=== PATIENT | female | born 1985 | race Caucasian/White ===

== ENCOUNTER → 2019-07-08 08:54 | Outpatient (CLI) | payer OTHER, SELFPAY ==
[2019-07-08 11:11] LABS: Anion Gap 6 (5-15); BUN 18 mg/dL (7-18); Calcium,Total 8.9 mg/dL (8.5-10.1); Chloride 111 mmol/L (98-107); Cholesterol 194 mg/dL (200); Creatinine, Serum 0.75 mg/dL (0.55-1.02); EST Glomerular Filtration Rate 95 mL/min (>60); Est Glom Filt Rate - Afr Amer 115 mL/min (>60); Glucose 102 mg/dL (74-106); High Density Lipoprotein 52 mg/dL; Potassium 4.2 mmol/L (3.5-5.1); Sodium Level 141 mmol/L (136-145); Triglycerides 93 mg/dL; Very Low Density Lipoprotein 19 mg/dL (5-40)
== END ==
LOC: LAB 08:56
PROVIDERS: PCP Family Medicine; Referring Provider Family Medicine; Visit Provider Family Medicine
DX: Z13.1 Encounter for screening for diabetes mellitus (principal); Z13.220 Encounter for screening for lipoid disorders
CPT/HCPCS: 36415; 80048; 80061

== ENCOUNTER → 2019-07-20 | Outpatient (CLI) | payer OTHER, SELFPAY ==
[2019-07-20 08:49] VITALS: BMI 34.8
[2019-07-26 14:08] LABS: HPV Genotype 16, Aptima Negative (Negative)
[2019-07-26 16:50] LABS: HPV APTIMA, High Risk Positive (Negative); HPV Genotype 18,45 Aptima Negative (Negative)
== END | disposition home or self-care (01) ==
LOC: LABSPEC 17:01
PROVIDERS: PCP Family Medicine; Referring Provider Nurse Practitioner Women's Health; Visit Provider Nurse Practitioner Women's Health
DX: Z12.4 Encounter for screening for malignant neoplasm of cervix (principal)
CPT/HCPCS: 87624; 88175; G0145

== ENCOUNTER → 2020-09-16 | Outpatient (CLI) | payer OTHER, SELFPAY ==
[2020-09-16 08:45] VITALS: BMI 34.0
[2020-09-18 13:32] LABS: HPV APTIMA, High Risk Negative (Negative)
== END | disposition home or self-care (01) ==
LOC: LABSPEC 12:33
PROVIDERS: PCP Family Medicine; Visit Provider Nurse Practitioner Women's Health
DX: Z12.4 Encounter for screening for malignant neoplasm of cervix (principal)
CPT/HCPCS: 87624; 88175; G0145

== ENCOUNTER → 2021-10-13 | Outpatient (CLI) | payer OTHER, SELFPAY ==
[2021-10-16 14:34] LABS: HPV APTIMA, High Risk Negative (Negative)
== END | disposition home or self-care (01) ==
LOC: LABSPEC 10-14 10:31
PROVIDERS: PCP Family Medicine; Visit Provider Nurse Practitioner Women's Health
DX: Z12.4 Encounter for screening for malignant neoplasm of cervix (principal)
CPT/HCPCS: 87624; 88175; G0145

== ENCOUNTER → 2022-10-19 | Outpatient (CLI) | payer OTHER, SELFPAY ==
[2022-10-24 15:08] LABS: HPV APTIMA, High Risk Negative (Negative)
== END | disposition home or self-care (01) ==
PROVIDERS: PCP Family Medicine; Referring Provider Nurse Practitioner Women's Health; Visit Provider Nurse Practitioner Women's Health
DX: Z12.4 Encounter for screening for malignant neoplasm of cervix (principal)
CPT/HCPCS: 87624; 88175; G0145

== ENCOUNTER → 2022-10-29 | Outpatient (CLI) | payer OTHER, SELFPAY ==
--- NOTE | 2022-10-29 07:26 | BI_ITS ---
MAMMOGRAPHY - BILATERAL SCREENING REASON FOR EXAM: Female, 37 years old. Routine annual screening examination. PERTINENT HISTORY: Grandmother with breast cancer. TECHNIQUE: Digital bilateral breast elisa (3D mammographic acquisition) in the CC and MLO projections. 2-D mediolateral oblique (MLO) and craniocaudad (CC) views of both breasts were obtained. CAD: Full Field Digital Mammography with Computer Added Detection was performed. COMPARISON: None. Baseline examination. FINDINGS: Breast Composition: There are scattered areas of fibroglandular density. There are no dominant masses or suspicious calcifications. No other significant abnormalities are identified. BI/SCRN MAMM (CAD)W/ELISA BILAT IMPRESSION: Negative screening mammogram. Yearly followup mammogram recommended. (A) ASSESSMENT CATEGORY: BIRADS Category 1: Negative. A letter regarding these results will be sent to the patient by the facility within 30 days. Approximately 10% of breast cancers are not detected by mammography. A normal mammogram should not delay biopsy of a clinically suspicious abnormality. [id number] Electronically Signed: Kendall Denton MD at 8:33 EDT ,
== END | disposition home or self-care (01) ==
LOC: OPBI 07:24
PROVIDERS: Referring Provider Nurse Practitioner Women's Health; Visit Provider Nurse Practitioner Women's Health
DX: Z12.31 Encounter for screening mammogram for malignant neoplasm of breast (principal)
CPT/HCPCS: 77063; 77067

== ENCOUNTER 2023-01-05 07:46 | Day surgery (SDC) | payer OTHER, SELFPAY ==
[2022-12-30 08:01] LABS: Hematocrit 44.8 % (37-47); Mean Corp Hgb Conc 33.5 g/dL (32-36); Mean Corpuscular Hgb 32.6 pg (27.0-32.0); Mean Corpuscular Volume 97.4 fL (81-99); Mean Platelet Vol. 8.8 fl (6.2-12.0); Platelet Count 309 K/mm3 (150-450); RBC Distribution Width CV 12.3 % (11.6-14.6); RBC Distribution Width SD 44.2 fl (35.1-43.9); White Blood Count 8.3 K/mm3 (4.4-11.0)
[2022-12-30 08:27] LABS: Anion Gap 6 (5-15); BUN 13 mg/dL (7-18); BUN/Creat Ratio 18.5 RATIO (10-20); Calcium,Total 8.8 mg/dL (8.5-10.1); Chloride 108 mmol/L (98-107); EST Glomerular Filtration Rate 100 mL/min (>60); Est Glom Filt Rate - Afr Amer 121 mL/min (>60); Glucose 93 mg/dL (74-106); Potassium 4.4 mmol/L (3.5-5.1); Sodium Level 138 mmol/L (136-145)
--- NOTE | 2023-01-05 | FALS_PTH ---
PATIENT: BLAINE VIEIRA LOC: [facility] [place] U#:[id number] AGE/SX: 37/F ROOM: RE01/05/[address]: Dr. Nicolette Comer DO : 1985 BED: DIS: 01/05/2023 SPEC #: [id number] RECD: 01/05/23 13:34 STATUS: VIPIN TREVER #: [id number] SURESH: 01/05/23 00:[address]: Nicolette Comer DEPT: SURGICAL PATHOLOGY RECD BY: Martin Ordonez ENTERED: 01/05/23 13:34 SP TYPE: FALL TUBES OTHR DR: Dr. Carlee Santo MD Tissues: Fallopian tube Procedures: Surgery Specimen Level IV HEADER OPERATION: Laparoscopic salpingectomy PRE-OP DIAGNOSIS: Sterilization TISSUE SUBMITTED: Bilateral fallopian tubes MICROSCOPIC DIAGNOSIS Right and left fallopian tubes, bilateral salpingectomies: Benign paratubal cysts of both fallopian tubes. Complete cross-sections of fallopian tubes. AM:michele 01/06/2023 MICROSCOPIC DESCRIPTION Slides are reviewed. GROSS DESCRIPTION Received in fixative is one container labeled with the patient's name and designated bilateral fallopian tubes. The specimen consists of bilateral fallopian tubes. One fallopian tube measures 7.0 cm in length and 0.7 cm in diameter. The second fallopian tube is received in two pieces and measures 7.0 cm in length and 1.0 cm in diameter. A detached piece of fallopian tube with fimbrial end was also noted measuring 1.0 x 0.3 x 0.1 cm. The intact fallopian tube shows a small paratubal cyst measuring 0.3 cm in greatest dimension. The second fallopian tube received in two pieces shows a paratubal cyst which is collapsed and measures 1.0 cm in greatest dimension. The fallopian tubes are not identified as right or left. Sections reveal unremarkable cut surfaces. Security Incident Response Specialist sections are submitted in two cassettes as follows: 1 - intact fallopian tube and smaller paratubal cyst, 2 - fallopian tube received in two pieces and larger paratubal cyst. / SJ:michele 01/05/2023 TC:5 CPT: 60033 x2
--- NOTE | 2023-01-05 07:55 | HP.PCM_ITS ---
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 Is patient in pain?: No Allergies No Known Allergies Allergy (Verified 12/09/22 14:19) Medications aspirin 81 mg tablet,delayed release (Adult Low Dose Aspirin) 81 mg PO DAILY 12/06/19 [History Confirmed 12/09/22] omeprazole 20 mg capsule,delayed release 20 mg PO DAILY 12/06/19 [History Confirmed 12/09/22] cholecalciferol (vitamin D3) 125 mcg (5,000 unit) capsule 125 mcg PO DAILY 10/13/21 [History Confirmed 12/09/22] rosuvastatin 5 mg tablet 5 mg PO DAILY 10/19/22 [History Confirmed 12/09/22] Post menopausal: No Patient : No : No PFSH Medical History GERD (gastroesophageal reflux disease) Nicotine dependence Obesity PFO (patent foramen ovale) Surgical History benign cyst removal from upper chest No history of previous surgery Family History Grandmother Breast cancerGrandfather Cancer lungFather Heart disease atrial fibOther CAD (coronary artery disease) Social History adopted: No household members: none housing: house number of children: 0 current occupational status: employed current occupation: [place] in [employer] pets and animals: Yes sexually active: No Smoking Status: Light Smoker (<10/day) second hand exposure: No alcohol intake: current alcohol intake frequency: a few times a week substance use type: does not use seatbelt use: always do you feel safe at home: Yes additional social history: Single HPI preop, sign paperwork Details: BLAINE VIEIRA is a 37 year old who presents for pre-op laparoscopic bilateral salpingectomy. She plans to bring her mom with her to surgery. History 0 Elective abortions Hx Para Spontaneous abortions Hx # Term Pregnancies Ectopic pregnancies Hx # Pregnancies Multiple births # of living children ROS Const ROS Unobtainable: All systems reviewed & are unremarkable except as noted in H Resp Resp: Reports system reviewed and no additional complaints, except as documented; Denies cough GI GI: Reports as per HPI Psych Psych: Reports system reviewed and no additional complaints, except as documented Exam Const General: cooperative, healthy appearing, comfortable and no acute distress Resp Effort & Inspection: normal respiratory effort Skin General: no rashes or lesions noted Psych Appearance: grossly normal Speech and Movement: speech and movement normal Coding Level of Care Code Off vis,est,level 3 Diagnoses Contraceptive management Z30.9 Assessment and Plan Assessment and Plan (1) Contraceptive management: Status: Acute Plan: After discussing the patient's diagnosis and treatment plan options, patient wishes to proceed with surgical management. I have discussed with the patient the risks, benefits, and alternatives of the procedure which include but are not limited to risks of anesthesia, bleeding, infection, possible damage to bowel, bladder, or surrounding vasculature which could lead to additional surgery to evaluate any complications. Patient agrees to procedure and wishes to proceed. ACOG/uptodate references given for additional information regarding procedure. plan for laparoscopic bilateral salpingectomy.
[2023-01-05 08:11] LABS: Internal QC Validated? YES +Cl - CLEAR BKGD; Pregnancy, Urine Negative Negative
[2023-01-05 08:14] VITALS: BP 137/85; PULSE 87; RESP 17; TEMP 36.2; O2SAT 96; BMI 34.7
[2023-01-05] MEDS: Lactated Ringers 1,000 ML 15 ML IV ×2 (08:18→10:00)
--- NOTE | 2023-01-05 09:01 | DCINST_ITS ---
Discharge Instructions Diet Discharge Diet: No restrictions Activity Discharge Activity: Return to Normal Activity, May Not Drive (for two weeks or while taking narcotic pain medications.), May Shower and May Take a Tub Bath (in 7 days) May resume sexual activity in: 1 week Weight Bearing Status: Full weight bearing Dressing / Incision Call your doctor if you observe: Using more than 1 pad per hour, Shortness of breath, Chest pain and Uncontrolled pain Suture Line Care: Avoid Pulling/Pushing and Avoid Pinching/Bending Remove Dressing in: 1 week (if present) Cleanse incision/area with: Soap & Water and Keep Dressing Clean & Dry Follow Up Care Please Follow Up With: Nicolette Comer DO When: Call to make an appointment with your doctor for a follow up incision check in 1-2 weeks. Test Results: Test results from this visit will be discussed in further detail at your follow- up appointment, if applicable. Discharge Plan Admission Primary Reason for Your Visit: laparoscopic bilateral salpingectomy Attending Provider: Nicolette Comer Primary Care Provider: Carlee Santo Discharge Orders/Prescriptions Prescriptions: New ibuprofen 800 mg tablet 800 mg PO Q8H PRN (Reason: pain) Qty: 30 0RF Continued omeprazole 20 mg capsule,delayed release(DR/EC) 20 mg PO DAILY aspirin [Adult Low Dose Aspirin] 81 mg tablet,delayed release (DR/EC) 81 mg PO DAILY cholecalciferol (vitamin D3) 125 mcg (5,000 unit) capsule 125 mcg PO DAILY rosuvastatin 5 mg tablet 5 mg PO DAILY Referrals / Follow Up: Care Physician,No Primary [Non-Staff] - Disposition Disposition (needs filled in before D/C Order can be placed): Home, Self Care
--- NOTE | 2023-01-05 09:02 | PCM.OPRPT ---
Problems Associated Problem List Diagnoses (1) Contraceptive management: Report of Operation Date of Procedure: 01/05/23 Pre-Operative Diagnosis: desires permanent sterilization Post-Operative Diagnosis: desires permanent sterilization Surgery/Procedure Performed:: laparoscopic bilateral salpingectomy Surgeon: Nicolette Comer Type of Anesthesia: General Estimated Blood Loss (mL): 3cc Description of Procedure: Patient was taken in the operating room and was placed under general anesthesia was prepped and draped in normal sterile fashion in the dorsal lithotomy position. Bladder was drained of clear urine and SCDs were on preoperatively. Uterus was sounded and a uterine manipulator was placed after dilating. Attention was then paid to the abdominal portion of the procedure and the umbilicus was elevated and injected with Marcaine and after a 5 mm incision was made and a 5 mm trocar was inserted into the abdomen under direct visualization using the laparoscope. Abdomen was insufflated with CO2 gas and a 5 mm optical trocar was placed under direct visualization. A left lower quadrant 5 mm port and a mini grasper suprapubically were placed under direct visualization. Uterus was well visualized and bilateral fallopian tubes identified and bilateral tubes were elevated and transecting across the mesosalpinx and the attachment to the uterine corpus bilaterally the tubes were removed without complication. Excellent hemostasis was noted. Fallopian tubes were removed through the lower port sites without complication. Liver and upper abdomen were visualized notably within normal limits and no other gross abnormalities were seen in the abdomen. All instruments removed from the abdomen after gas was desufflated. Port sites were closed with 3-0 Monocryl and surgical glue applied. All instruments removed from the vagina and patient was awoken and taken recovery in stable condition. Admit VTE Documentation VTE Present on Admission: No VTE Mechan Device Prophylaxis: SCD's VTE Pharm Prophylaxis ordered?: No Multi Select Codes Urinary/Genital Urinary/Genital CPT Codes: 47940 Laproscopic BS/O
[2023-01-05] MEDS: Bupivacaine 0.25% 30 ML Vial (09:48)
[2023-01-05 10:18] VITALS: BP 108/88; BP 137/85; PULSE 79; RESP 16; TEMP 36.6; O2SAT 96
[2023-01-05 10:30] VITALS: BP 117/75; BP 137/85; PULSE 70; RESP 16; O2SAT 99
[2023-01-05 10:45] VITALS: BP 104/66; BP 137/85; PULSE 63; RESP 16; O2SAT 97
[2023-01-05 10:51] VITALS: BP 104/66; BP 137/85; PULSE 63; RESP 16; TEMP 37; O2SAT 97
[2023-01-05 11:59] VITALS: BP 107/64; BP 137/85; PULSE 74; RESP 16; TEMP 36.6; O2SAT 94
== END 2023-01-05 12:02 | disposition home or self-care (01) ==
LOC: SDC 07:47 → AC 01-06 11:13
PROVIDERS: Anesthesiology; PCP Internal Medicine; Referring Provider Obstetrics & Gynecology; Visit Provider Obstetrics & Gynecology
PROC: (CPT 58661; principal; 2023-01-05 09:20)
DX: Z30.2 Encounter for sterilization (principal); N83.8 Other noninflammatory disorders of ovary, fallopian tube and broad ligament; F17.200 Nicotine dependence, unspecified, uncomplicated; E66.9 Obesity, unspecified; E78.00 Pure hypercholesterolemia, unspecified; K21.9 Gastro-esophageal reflux disease without esophagitis; Z79.82 Long term (current) use of aspirin; Z79.899 Other long term (current) drug therapy; Z68.35 Body mass index [BMI] 35.0-35.9, adult
CPT/HCPCS: 58661; 00840; 36415; 80048; 81025; 85027; 88302; 88305; 93005; J7120; J2405